=== PATIENT | male | born 1965 | race Caucasian/White ===

== ENCOUNTER → 2016-10-28 | Day surgery (SDC) | payer OTHER ==
[~2016-10-28] VITALS: Ht 175.3 cm; Wt 98.7 kg
[~2016-10-28] MED LIST: CHLORHEXIDINE GLUCONATE 2 % 1 PACK (2 CLOTHS) TOPICAL PRN; DO NOT ADM ANY ANTICOAGULANT DRUGS PRN; FAMOTIDINE 20 MG/2 ML VIAL ONE; HYDR2TAB PO; IBUP200C PO; INSULIN HUMAN REGULAR 1,000 UNITS/10 ML VIAL SQ PRN; LACTATED RINGER'S 1000 ML IV PRN; METOPROLOL TARTRATE 25 MG TAB PO PRN; MIDAZOLAM HCL 2 MG/2 ML VIAL ONE; MORPHINE SULFATE 4 MG/ML INJ IV PRN; OMEP20CA2 PO; ONDANSETRON HCL 4 MG/2 ML VIAL IV PUSH ONE; ONDANSETRON HCL 4 MG/2 ML VIAL IV PUSH PRN; POVIDONE IODINE 5% (ANTISEPSIS KIT) 4 APPLICATIONS EACH NARE PRN; PROPOFOL 200 MG/20 ML AMP IV ONE; SODIUM CHLORID 0.9% 500 ML IV PRN; TAMS0.4C4 PO; ceFAZolin 1,000 MG/NS 100 ML IV SCH; traMADol HCL 50 MG TAB PO PRN
[2016-10-28 06:16] VITALS: BP 126/68; PULSE 57; RESP 18; TEMP 98; O2SAT 98
--- NOTE | 2016-10-28 06:23 | RADRPT ---
EXAM DATE/TIME: 10/28/2016 05:33 [place] COMPARISON: No previous studies available for comparison. INDICATIONS : Pre op for lithotripsy, left side. MEDICAL HISTORY : Gastroesophageal reflux disease. Kidney stones. SURGICAL HISTORY : Cholecystectomy. Left ureteral stent. Vasectomy. ENCOUNTER: Initial ACUITY: 1 day PAIN SCORE: 0/10 LOCATION: Left abdomen. FINDINGS: Supine view of the abdomen was performed. The abdominal bowel gas pattern is normal. No abnormal ma sses, or organomegaly is seen. There is a single small faint 3 mm calculus projected over the lower p ole the left kidney. There is a left double pigtail ureteral stent catheter in place. There are no ri ght renal calculi. The osseous structures are unremarkable. CONCLUSION: 1. 3 mm left renal calculus. 2. Left double pigtail ureteral stent catheter in place. Anant Pisano MD on October 28, 2016 at 6:20 Board Certified Radiologist. This report was verified electronically.
[2016-10-28 06:42] LABS: AUTOMATED NEUTROPHIL # 2.2 TH/MM3 (1.8-7.7); BASOPHIL % 0.8 % (0.0-2.0); EOSINOPHIL # 0.2 TH/MM3 (0-0.4); EOSINOPHIL % 5.6 % (0.0-4.0); HEMATOCRIT 39.1 % (39.0-51.0); HEMO FLAGS DIFF FINAL; LYMPH % 32.1 % (9.0-44.0); LYMPHOCYTE # 1.4 TH/MM3 (1.0-4.8); MEAN CELL VOLUME 92.9 FL (80.0-100.0); MEAN CORPUSCULAR HGB CONC 34.4 % (32.0-36.0); MONO % 10.4 % (0.0-8.0); NEUT % 51.1 % (16.0-70.0); PLATELET COUNT 149 TH/MM3 (150-450); RED BLOOD COUNT 4.21 MIL/MM3 (4.50-5.90); RED CELL DISTRIBUTION WIDTH 12.9 % (11.6-17.2); WHITE BLOOD COUNT 4.3 TH/MM3 (4.0-11.0)
--- NOTE | 2016-10-28 08:29 | PD.OP ---
Operative Report Date of Surgery: Oct 28, 2016 Preoperative Diagnosis: Left renal calculus Postoperative Diagnosis: Same Procedure: Left extracorporeal shockwave lithotripsy Anesthesia: Gen. LMA Surgeon: Hudson Tyson Diabetes Clinical Manager(s): None Resident Surgeon: None Operation and Findings: 51 year-old male admitted with a left ureteral stone status post cystoscopy left double-J stent placement to undergo left extracaporal shockwave lithotripsy today. Risk and benefits were discussed preoperatively and he was willing to proceed. Patient was brought to the operating room and identified by myself as Vincenzo Boss. He was placed on the operating room table in the supine position, received preprocedure antibiotics and general LMA anesthesia was administered. Under fluoroscopic imaging guidance and ultrasound imaging the stone was visualized in the left lower pole. This proximal with 6 mm in size. ESWL therapy commenced with the initial rate of 60 to the first 200 shocks. The remaining shocks were rate 120. The total number of shocks received was 1500. Good fragmentation of stone was noted under both fluoroscopic imaging and ultrasonic imaging guidance. He tolerated the procedure well and was transferred to recovery room in stable condition. He will follow-up in 2 weeks to undergo KUB prior and cystoscopy with stent removal at that time. Hudson Tyson DO Oct 28, 2016 08:29
[2016-10-28 09:30] VITALS: BP 111/62; PULSE 56; RESP 18; TEMP 98.1; O2SAT 98
== END | disposition home or self-care (01) ==
LOC: HSDC 05:12
PROVIDERS: ATTEND Urology
DX: N20.0 Calculus of kidney (principal); K21.9 Gastro-esophageal reflux disease without esophagitis; M19.90 Unspecified osteoarthritis, unspecified site; Z01.818 Encounter for other preprocedural examination
CPT/HCPCS: 00872; 50590; 74000; 85025; J0690; J2250; J2405; J3010; J7120